=== PATIENT | female | born 1960 | race Caucasian/White ===

== ENCOUNTER → 2017-12-13 | Outpatient (CLI) | payer OTHER ==
--- NOTE | 2017-12-13 18:23 | Diagnostic Imaging Report ---
PROCEDURE: Frontal and lateral views of the chest. COMPARISON: Patients [facility], , CHEST SINGLE (NOT PORTABLE), 11/17/2014, 18:23. INDICATIONS: BRONCHITIS FINDINGS: Lines/tubes: None. Lungs: The lungs are well inflated and clear. There is no evidence of pneumonia or pulmonary edema. Pleura: There is no pleural effusion or pneumothorax. Heart and mediastinum: The heart and the mediastinum are normal. Bones: No acute bony abnormality. IMPRESSION: 1. No acute cardiopulmonary abnormalities. Vahid Bae M.D. Dictated by: Vahid Bae M.D. on 12/13/2017 at 18:23 Electronically approved by: Vahid Bae M.D. on 12/13/2017 at 18:23
== END ==
LOC: RAD 17:36
PROVIDERS: ATTEND Family Medicine
DX: J40 Bronchitis, not specified as acute or chronic (principal)
CPT/HCPCS: 71046

== ENCOUNTER → 2019-02-03 | Outpatient (CLI) | payer OTHER ==
--- NOTE | 2019-02-03 16:21 | Diagnostic Imaging Report ---
Exam: Lumbar spine complete History: Low back pain radiating down both legs Comparison: None. Findings: There are 5 nonrib-bearing lumbar-type vertebral bodies. No acute, displaced fracture or subluxation. No pars interarticularis defects are identified on the oblique radiographs. Mild dextroscoliotic curvature of the lumbar spine with disc space narrowing and marginal osteophytosis at L4-L5 and, to a lesser extent, L2-3 and L3-L4. Facet joints are well-maintained. Sacroiliac joints are intact. Impression: Mild degenerative disc changes at L2-3, L3-4 and L4-5 with associated mild dextroscoliotic curvature of the lumbar spine. Signed by: Dr. Marino Agrawal M.D. on 02/03/2019 4:17 PM
== END ==
LOC: RAD 15:35
PROVIDERS: ATTEND Family Medicine
DX: M54.5 Low back pain (principal)
CPT/HCPCS: 72110

== ENCOUNTER → 2019-07-11 | Day surgery (SDC) | payer OTHER ==
[~2019-07-11] MED LIST: CYMBALTA30 MG PO; FENTANYL CITRATE/PF 100MCG/2 ML INJ ONE; GLUCAGON FOR INJ 1 MG VIAL ONE; HYOSCYAMINE 0.125 MG TAB ONE; LORAZEPAM0.5 MG PO; MELATONIN10 MG PO; MIDAZOLAM HCL 2 MG/2 ML VIAL ONE; PROPOFOL IV EMULSION 10 MG/ML 50 ML VIAL ONE; SLEEP AID25 M1 PO
--- OUTSIDE RECORDS SUMMARY | 2019-07-11 10:51 | XMS REPORT ---
Author Author [facility] Address Unknown Phone Unavailable Care Team Providers Care Tipple Boss Name Role Phone DAISY CONTRERAS Unavailable Unavailable Problems This patient has no known problems. Allergies, Adverse Reactions, Alerts This patient has no known allergies or adverse reactions. Medications This patient has no known medications. Results Test Description Test Time Test Comments Text Results Atomic Results Result Comments BREAST ULTRASOUND BILATERAL 2019-07-01 10:21:36 - BREAST ULTRASOUND BILATERALULTRASOUND OF BOTH BREASTS AND BOTH AXILLA: 07/01/2019CLINICAL: Abnormal Mammogram. Comparison is made to exams dated 03/21/2019 mammogram - [facility]- , 07/10/2014 mammogram, 07/10/2014 ultrasound, and 12/26/2013 mammogram - [facility]. Color flow and real-time ultrasound of the right breast and axilla and color flow and real-time ultrasound of the left breast and axilla were performed. Augustine scale images of the real-time examination were reviewed. There is a benign 8 mm simple cyst in the right breast at 6 o'clock, 3 cm from the nipple. No suspicious acoustic findings noted on the whole breast bilateral ultrasound.No abnormalities were seen sonographically in the left breast or either axilla. IMPRESSION: BENIGN No sonographic evidence of malignancy. Benign simple cyst in the right breast. Resume annual screening mammography in one year. The above findings and recommendations were discussed with the patient at the time of the examination.Jonnathan Palacios MD hs/:07/01/2019 10:21:36 copy to: Daisy Contreras M.D., ph: [phone], fax: [phone] Technologist: Daja Dominguez , [facility]-FWletter sent: BIRADS 1-2 Normal Ultrasound BI-RADS: 2 Benign SCR MAMM BILATERAL NICOL CAD DIGITAL W/AUGMENTATION 2019-04-15 10:54:00 - SCR MAMM BILATERAL NICOL CAD DIGITAL W/AUGMENTATIONBILATERAL DIGITAL SCREENING MAMMOGRAM 3D/2D WITH CAD WITH AUGMENTATION: 03/21/2019CLINICAL: Asymptomatic. Digital breast tomosynthesis was performed in addition to routine CC and MLO views. Current mammographic images were evaluated by either a [employer] M-Vu or a [employer] ImageChecker CAD (computer aided detection system). Comparison is made to exams dated 07/10/2014 mammogram, 12/26/2013 mammogram, 08/13/2012 mammogram, and 03/28/2012 mammogram - [facility]. The tissue of both breasts is heterogeneously dense. This may lower the sensitivity of mammography. There are multiple bilateral oval and round masses. Bilateral retropectoral silicone implants are present. There is irregularity along the superior medial margin of the right implant.IMPRESSION: INCOMPLETE ASSESSMENT: ADDITIONAL IMAGING EVALUATION RECOMMENDED1. Bilateral oval and round masses are indeterminant. Bilateral breast ultrasound is recommended.2. Irregularity along the superior medial margin of the right implant, which is likely due to benign implant rupture.Sherlyn Hairston D.O. al/:04/15/2019 10:54:00 Entry: cp - 04/15/2019 10:55:22Imaging Technologist: Lupe ESCALONA, [facility]- FWletter sent: Additional Imaging Mammogram BI-RADS: 0 Indeterminate SP LUMBAR, COMPLETE MIN 4VW 2019-02-03 16:15:00 [place] [address] Patient Name: MARIAELENA MEJIA MR #: [id number] : 1960 Age/Sex: 58/F Req #: [id number] Adm Physician: Ordered by: DAISY CONTRERAS MD Report #: [id number] Location: [facility] Room/Bed: Procedure: [id number] DX/SP LUMBAR, COMPLETE MIN 4VW Exam Date: 02/03/19 Exam Time: 1555 REPORT STATUS: Signed Exam: Lumbar spine complete History: Low back pain radiating down both legs Comparison: None. Findings: There are 5 nonrib-bearing lumbar-type vertebral bodies. No acute, displaced fracture or subluxation. No pars interarticularis defects are identified on the oblique radiographs. Mild dextroscoliotic curvature of the lumbar spine with disc space narrowing and marginal osteophytosis at L4-L5 and, to a lesser extent, L2-3 and L3-L4. Facet joints are well-maintained. Sacroiliac joints are intact. Impression: Mild degenerative disc changes at L2-3, L3-4 and L4-5 with associated mild dextroscoliotic curvature of the lumbar spine. Signed by: Dr. Yohana Maldonado M.D. on 02/03/2019 4:17 PM Dictated By: YOHANA MALDONADO MD 16 Transcribed By: YUNIEL on 02/03/191616 COPY TO: DAISY CONTRERAS MD CHEST 2 VIEWS [place] [address] Patient Name: MARIAELENA MEJIA MR #: [id number] : 1960 Age/Sex: 57/F Req #: [id number] Adm Physician: Ordered by: DAISY CONTRERAS MD Report #: [id number] Location: [facility] Room/Bed: Procedure: [id number] DX/CHEST 2 VIEWS Exam Date: 12/13/17 Exam Time: 1801 REPORT STATUS: Signed PROCEDURE: Frontal and lateral views of the chest. COMPARISON: Patients [facility], , CHEST SINGLE (NOT PORTABLE), 11/17/2014, 18:23. INDICATIONS: BRONCHITIS FINDINGS: Lines/tubes: None. Lungs: The lungs are well inflated and clear. There is no evidence of pneumonia or pulmonary edema. Pleura: There is no pleural effusion or pneumothorax. Heart and mediastinum: The heart and the mediastinum are normal. Bones: No acute bony abnormality. IMPRESSION: 1. No acute cardiopulmonary abnormalities. Edouard Bae M.D. Dictated by: Edouard Bae M.D. on 12/13/2017 at 18:23 Electronically approved by: Edouard Bae M.D. on 12/13/2017 at 18:23 Dictated By: EDOUARD BAE MD 22 Transcribed By: MACHO on 12/13/171822 COPY TO: DAISY CONTRERAS MD
[2019-07-11 14:50] VITALS: BP 117/69
--- NOTE | 2019-07-11 21:03 | Operative Report ---
DATE OF PROCEDURE: 07/11/2019 SURGEON: Earl Johnson MD PROCEDURE: Colonoscopy with polypectomy. INDICATIONS FOR COLONOSCOPY: Surveillance colonoscopy, personal history of colon polyps. MEDICATIONS: The patient was done under MAC, please see anesthesiologist's note. PROCEDURE IN DETAIL: With the patient in left lateral decubitus position, a flexible fiberoptic Olympus colonoscope was inserted into the rectum with ease and advanced all the way to the cecum. A minute polyp was noted in the cecum that was removed per the cold biopsy forceps. The ascending colon appeared to be within normal limits. One polyp was removed for cold snare polypectomy from the transverse colon. The descending colon appeared to be within normal limits. Two polyps were snared and three polyps were hot biopsied from the sigmoid colon. One polyp was snared and one polyp was hot biopsied from the rectum. The scope was then retroflexed into the distal rectum and small internal hemorrhoids were noted, none of which was actively bleeding. The scope was then straightened out, it was subsequently withdrawn. The patient tolerated the procedure well. IMPRESSION: 1. Cecal polyp removed per cold biopsy forceps. 2. Transverse colon polyp removed per cold snare polypectomy. 3. Sigmoid colon polyps x5, two snared and three hot biopsied. 4. Rectal polyps x2, one removed per snare electrocautery and one per hot biopsy forceps. 5. Internal hemorrhoids, none actively bleeding. PLAN: Follow up histology. Initiate high-fiber, low-fat diet. Initiate high-fiber supplement. The patient might benefit from a followup colonoscopy in 3 years. A total of nine polyps were removed. Earl Johnson MD [facility] /[id number] cc: Jc Contreras MD
== END | disposition home or self-care (01) ==
LOC: OR 10:49
PROVIDERS: ATTEND Internal Medicine Gastroenterology
DX: Z09 Encounter for follow-up examination after completed treatment for conditions other than malignant neoplasm (principal); D12.5 Benign neoplasm of sigmoid colon; D12.3 Benign neoplasm of transverse colon; D12.0 Benign neoplasm of cecum; K62.1 Rectal polyp; K64.8 Other hemorrhoids; I10 Essential (primary) hypertension; Z01.810 Encounter for preprocedural cardiovascular examination; Z68.30 Body mass index [BMI] 30.0-30.9, adult
CPT/HCPCS: 45380; 45384; 45385; 93005; J1610; J2250; J2704; J3010; 45378

== ENCOUNTER 2019-12-22 11:47 | Emergency (ER) | payer OTHER ==
[~2019-12-22] VITALS: Ht 162.6 cm; Wt 78.0 kg
[~2019-12-22 11:47] MED LIST changes: -FENTANYL CITRATE/PF 100MCG/2 ML INJ ONE; -GLUCAGON FOR INJ 1 MG VIAL ONE; -HYOSCYAMINE 0.125 MG TAB ONE; -MIDAZOLAM HCL 2 MG/2 ML VIAL ONE; -PROPOFOL IV EMULSION 10 MG/ML 50 ML VIAL ONE
--- NOTE | 2019-12-22 13:59 | Diagnostic Imaging Report ---
TECHNIQUE: CT of the chest WITHOUT intravenous contrast. Dose modulation, iterative reconstruction, and/or weight-based adjustment of the mA/kV was utilized to reduce the radiation dose to as low as reasonably achievable. INDICATION: 59-year-old woman after fall. COMPARISON: None. FINDINGS: ABSENCE OF INTRAVENOUS CONTRAST DECREASES SENSITIVITY FOR DETECTION OF FOCAL LESIONS AND VASCULAR PATHOLOGY. LINES/TUBES: None. LUNGS AND AIRWAYS: Central airways are patent. Mild centrilobular emphysema. 4 mm noncalcified nodule in the posterior right upper lobe adjacent to the major fissure (axial lung window series image 37). 4 mm noncalcified nodule in the left upper lobe (axial lung window series image 44). 3 mm noncalcified nodule in the lingula (axial lung window series image 69). Linear atelectasis in both lower lobes, right greater than left. PLEURA: Trace right pleural effusion. HEART AND MEDIASTINUM: The visualized thyroid gland is normal. No significant mediastinal, hilar, or axillary lymphadenopathy. The heart and pericardium are within normal limits. Mild atherosclerotic calcifications in the thoracic aorta. SOFT TISSUES AND BONES: Degenerative changes of the visualized spine. Suspected chronic posttraumatic deformities of anterior right ribs. Bilateral breast prostheses. UPPER ABDOMEN: Apparent 1.9 x 1.6 cm mildly hypodense lesion in the anteromedial upper pole of the right kidney. IMPRESSION: Trace right pleural effusion. Atelectasis in both lower lobes. 3-4 mm pulmonary nodules. Optional follow-up chest CT may be obtained in 12 months for reassessment. Apparent mildly hypodense lesion in the right kidney, incompletely characterized on this exam. Renal ultrasound or abdomen CT or MRI with and without intravenous contrast (renal mass protocol) may be obtained for further characterization. Signed by: Yamilet Vickers MD on 12/22/2019 1:57 PM
== END 2019-12-22 14:30 | disposition home or self-care (01) ==
LOC: FSED 11:47
DX: S20.211A Contusion of right front wall of thorax, initial encounter (principal); M62.830 Muscle spasm of back; W01.0XXA Fall on same level from slipping, tripping and stumbling without subsequent striking against object, initial encounter; Y93.01 Activity, walking, marching and hiking; Y92.488 Other paved roadways as the place of occurrence of the external cause; J44.9 Chronic obstructive pulmonary disease, unspecified; F41.9 Anxiety disorder, unspecified; N28.9 Disorder of kidney and ureter, unspecified; J90 Pleural effusion, not elsewhere classified; R91.8 Other nonspecific abnormal finding of lung field
CPT/HCPCS: 71250; 99283

== ENCOUNTER 2020-04-19 00:27 | Observation (INO) | payer OTHER ==
[~2020-04-19] VITALS: Ht 162.6 cm; Wt 86.2 kg
[2020-04-19] VITALS (10 sets, daily range): BP systolic 128–181; BP diastolic 46–96
[2020-04-19] MEDS ORDERED: SODIUM CHLORIDE 0.9% 1000ML 1,000 ML IV STA ×2 (00:36)
[2020-04-19] MEDS ORDERED: KETOROLAC TROMETHAMINE 30 MG/ML VIAL IV STA (00:36)
--- NOTE | 2020-04-19 00:38 | Emergency Department Note ---
History of Present Illnes History of Present Illness Chief Complaint: General Medicine Complaints History of Present Illness This is a 60 year old female LLQ pain with n/v x 3 days. recent diagnosis of kidney stone at [facility] 2 days prior. Historian: Patient, Blow Molding Machine Operator/EMS Arrival Mode: [facility] EMS Treatment AUTOMOTIVE WINDOW TINTER: See EMS Report Onset (how long ago): day(s) (3) Severity: moderate Onset quality: gradual Duration (how long): day(s) (3) Timing of current episode: constant Progression: worsening Chronicity: new Context: Denies recent illness, Denies recent surgery, Denies recent immobilization, Denies recent travel, Denies trauma/injury, Denies new medications, Denies hx of DVT/PE, Denies non-compliance w/ medications, Denies other Relieving factors: rest Exacerbating factors: movement Associated symptoms: Reports malaise, Reports nausea/vomiting Previous service: re-evaluation Past Medical/Family History Physician Review I have reviewed the patient's past medical and family history. Any updates have been documented here. Past Medical History Recent Fever: No Clinical Suspicion of Infectio: No New/Unexplained Change in Ment: No Past Medical History: COPD, Anxiety Other Medical History: CHRONIC BRONCHITIS Past Surgical History: Hysterectomy Other Surgery: breast implants Social History Smoking Cessation: Never Smoker Alcohol Use: None Any Illegal Drug Use: No Other Last Tetanus: utd Review of Systems Review of Systems Constitutional: Reports no symptoms EENTM: Reports no symptoms Cardiovascular: Reports no symptoms Respiratory: Reports no symptoms Gastrointestinal: Reports nausea, Reports vomiting Genitourinary: Reports pain Musculoskeletal: Reports no symptoms Integumentary: Reports no symptoms Neurological: Reports no symptoms Psychological: Reports no symptoms Endocrine: Reports no symptoms Hematological/Lymphatic: Reports no symptoms Physical Exam Related Data Allergies: Coded Allergies: ceftriaxone (Verified Allergy, Intermediate, itching, 04/20/20) levofloxacin (Verified Allergy, Unknown, 04/19/20) Vital signs reviewed: Yes Physical Exam CONSTITUTIONAL Constitutional: Present well-developed, Present well-nourished HENT HENT: Present normocephalic, Present atraumatic, Present oropharynx clear/moist, Present nose normal HENT L/R: Present left ext ear normal, Present right ext ear normal EYES Eyes: Reports PERRL, Reports conjunctivae normal NECK Neck: Present ROM normal PULMONARY Pulmonary: Present effort normal, Present breath sounds normal CARDIOVASCULAR Cardiovascular: Present regular rhythm, Present heart sounds normal, Present capillary refill normal, Present normal rate GASTROINTESTINAL Abdominal: Present soft, Present tender (LLQ), Present left CVA tenderness GENITOURINARY Genitourinary: Present exam deferred SKIN Skin: Present warm, Present dry MUSCULOSKELETAL Musculoskeletal: Present ROM normal NEUROLOGICAL Neurological: Present alert, Present oriented x 3, Present no gross motor or sensory deficits PSYCHOLOGICAL Psychological: Present mood/affect normal, Present judgement normal Results Laboratory Lab results reviewed: Yes Imaging Imaging results reviewed: Yes Impressions [facility] [address] [place] [address] Patient Name: OVIDIO MEJIA MR #: [id number] : 1960 Age/Sex: 60/F Req #: [id number] Adm Physician: Ordered by: SHUKRI VASQUEZ DO Report #: [id number] Location: ER Room/Bed: Procedure: [id number] CT/CT ABDOMEN/PELVIS WO Exam Date: 04/19/20 Exam Time: 0120 REPORT STATUS: Signed EXAM: CT Abdomen and Pelvis WITHOUT contrast INDICATION: Abdominal pain COMPARISON: None. TECHNIQUE: Abdomen and pelvis were scanned utilizing a multidetector helical scanner from the lung base to the pubic symphysis without administration of IV contrast. Absence of intravenous contrast decreases sensitivity for detection of focal lesions and vascular pathology. Coronal and sagittal reformations were obtained. Routine protocol was performed. IV CONTRAST: None ORAL CONTRAST: None COMPLICATIONS: None RADIATION DOSE: Total DLP: ... mGy*cm Estimated effective dose: (DLP x 0.015 x size factor) mSv CTDIvol has been reviewed. It is below the limits set by the Radiation Protocol Committee (RPC). Dose modulation, iterative reconstruction, and/or weight based adjustment of the mA/kV was utilized to reduce the radiation dose to as low as reasonably achievable. FINDINGS: LINES and TUBES: None. LOWER THORAX: Mild scarring and/or atelectasis of the lung bases. Breast implants. HEPATOBILIARY: No focal hepatic lesions. No biliary ductal dilation. GALLBLADDER: No radio-opaque stones or sludge. No wall thickening. SPLEEN: No splenomegaly. PANCREAS: No focal masses or ductal dilatation. ADRENALS: No adrenal nodules KIDNEYS/URETERS: Mild left hydroureteronephrosis. Moderate left perinephric inflammation. 6 mm stone within the left proximal ureter above the level of the pelvic free. Tiny nonobstructing right intrarenal calculus. No right hydronephrosis. No discrete solid or cystic renal mass. GI TRACT: No abnormal distention, wall thickening, or evidence of bowel obstruction. Appendix is normal. PELVIC ORGANS/BLADDER: The uterus is surgically absent. The bladder is grossly unremarkable. LYMPH NODES: No lymphadenopathy. VESSELS: Mild atherosclerotic calcifications. PERITONEUM / RETROPERITONEUM: No free air or fluid. BONES: No acute abnormalities. SOFT TISSUES: Unremarkable. IMPRESSION: 1. Left obstructive uropathy due to a 6 mm stone within the left proximal ureter. Mild left hydronephrosis. 2. Tiny nonobstructing right intrarenal calculus. Signed by: Dillon Winters MD on 04/19/2020 2:08 AM Dictated By: DILLON WINTERS MD 7 Transcribed By: YUNIEL on 04/19/20207 COPY TO: SHUKRI VASQUEZ DO~ Assessment & Plan Medical Decision Making MDM 60 yof with abdominal pain. CBC, CMP, UA and CTS ordered to r/o appendicitis, diverticulitis, UTI, kidney stone, perforated viscus, obstruction, ischemia, and biliary pathology Assessment & Plan Final Impression: (1) Kidney stone on left side (2) UTI (urinary tract infection) (3) Renal insufficiency Depart Disposition: ADMITTED Last Vital Signs Date Time Temp Pulse Resp B/P (MAP) Pulse Ox O2 Delivery O2 Flow Rate FiO2 04/20/20 09:58 98.2 104 16 97 Room Air 04/20/20 08:20 107/79 (88) 04/19/20 13:52 6 Home Meds Reported Medications Nitrofurantoin Monohyd/M-Cryst (MACROBID 100 MG CAPSULE) 100 Mg Capsule, 100 MG PO BIDWM, CAP 04/20/20 Oxybutynin Chloride (DITROPAN XL) 5 Mg Tab.er.24, 5 MG PO BID, #30 TAB 04/20/20 Acetaminophen With Codeine (TYLENOL WITH CODEINE #3 TABLET) 1 Each Tablet, 300 MG PO Q4HR PRN for Mild Pain (1-3) or Fever>100.8, TAB 04/20/20 Melatonin (MELATONIN) 10 Mg Tab.mphase, 10 MG PO HS 07/09/19 Doxylamine Succinate (SLEEP AID) 25 Mg Tablet, PO DAILY 07/09/19 Duloxetine Hcl (CYMBALTA) 30 Mg Capsule.dr, 30 MG PO DAILY, #30 CAP 07/09/19 Lorazepam (LORAZEPAM) 0.5 Mg Tablet, 0.5 MG PO HS, TAB 07/09/19 SHUKRI VASQUEZ DO Apr 19, 2020 00:38
[2020-04-19 01:34] LABS: BASOPHILS # (AUTO) 0.1 (0.0-0.1); BASOPHILS % 0.5 % (0.0-1.0); EOSINOPHILS % 0.1 % (0.0-6.0); HEMATOCRIT 43.8 % (34.2-44.1); HEMOGLOBIN 14.6 g/dL (12.0-16.0); LYMPHOCYTES # (AUTO) 1.4 (1.0-3.2); LYMPHOCYTES % 7.8 % (18.0-39.1); MEAN CORPUSCULAR HEMOGLOBIN 29.4 pg (28-32); MEAN CORPUSCULAR HGB CONC 33.3 g/dL (31-35); MEAN CORPUSCULAR VOLUME 88.1 fL (81-99); MONOCYTES # (AUTO) 1.1 (0.2-0.8); NEUTROPHILS # (AUTO) 14.8 (2.1-6.9); NEUTROPHILS % 85.1 % (38.7-80.0); PLATELET COUNT 368 x10e3/uL (140-360); RED BLOOD COUNT 4.97 x10e6/uL (3.6-5.1); RED CELL DISTRIBUTION WIDTH 13.2 % (11.7-14.4)
[2020-04-19] MEDS ORDERED: ONDANSETRON HCL INJ 2MG/ML 2ML 2 MG/ML VIAL IV STA (01:50)
[2020-04-19] MEDS ORDERED: CIPROFLOXACIN 400 MG/D5W 200ML 200 ML IV STA (01:51)
[2020-04-19] MEDS ORDERED: MORPHINE SULFATE INJ 4 MG/ML INJ 1ML IV PRN (02:00)
[2020-04-19] MEDS ORDERED: ONDANSETRON HCL INJ 2MG/ML 2ML 2 MG/ML VIAL IV PRN ×2 (02:00→16:45)
--- NOTE | 2020-04-19 02:11 | Diagnostic Imaging Report ---
EXAM: CT Abdomen and Pelvis WITHOUT contrast INDICATION: Abdominal pain COMPARISON: None. TECHNIQUE: Abdomen and pelvis were scanned utilizing a multidetector helical scanner from the lung base to the pubic symphysis without administration of IV contrast. Absence of intravenous contrast decreases sensitivity for detection of focal lesions and vascular pathology. Coronal and sagittal reformations were obtained. Routine protocol was performed. IV CONTRAST: None ORAL CONTRAST: None COMPLICATIONS: None RADIATION DOSE: Total DLP: ... mGy*cm Estimated effective dose: (DLP x 0.015 x size factor) mSv CTDIvol has been reviewed. It is below the limits set by the Radiation Protocol Committee (RPC). Dose modulation, iterative reconstruction, and/or weight based adjustment of the mA/kV was utilized to reduce the radiation dose to as low as reasonably achievable. FINDINGS: LINES and TUBES: None. LOWER THORAX: Mild scarring and/or atelectasis of the lung bases. Breast implants. HEPATOBILIARY: No focal hepatic lesions. No biliary ductal dilation. GALLBLADDER: No radio-opaque stones or sludge. No wall thickening. SPLEEN: No splenomegaly. PANCREAS: No focal masses or ductal dilatation. ADRENALS: No adrenal nodules KIDNEYS/URETERS: Mild left hydroureteronephrosis. Moderate left perinephric inflammation. 6 mm stone within the left proximal ureter above the level of the pelvic free. Tiny nonobstructing right intrarenal calculus. No right hydronephrosis. No discrete solid or cystic renal mass. GI TRACT: No abnormal distention, wall thickening, or evidence of bowel obstruction. Appendix is normal. PELVIC ORGANS/BLADDER: The uterus is surgically absent. The bladder is grossly unremarkable. LYMPH NODES: No lymphadenopathy. VESSELS: Mild atherosclerotic calcifications. PERITONEUM / RETROPERITONEUM: No free air or fluid. BONES: No acute abnormalities. SOFT TISSUES: Unremarkable. IMPRESSION: 1. Left obstructive uropathy due to a 6 mm stone within the left proximal ureter. Mild left hydronephrosis. 2. Tiny nonobstructing right intrarenal calculus. Signed by: Ron Fisher MD on 04/19/2020 2:08 AM
[2020-04-19] MEDS ORDERED: ONDANSETRON HCL 4 MG ORAL DISINTEGRATING TAB PO ONE (02:30)
[2020-04-19] MEDS: CEFTRIAXONE SOD 1 GM/NS 50 ML 50 ML IV SCH (02:45)
[2020-04-19 03:47] LABS: ALBUMIN 3.6 g/dL (3.5-5.0); CALCIUM 8.9 mg/dL (8.4-10.2); CREATININE, SERUM 1.29 mg/dL (0.57-1.11)
--- NOTE | 2020-04-19 05:30 | NUR ---
RECEIVED THE PATIENT FROM ER IN [facility] WITH C/O LEFT FLANK PAIN.ADMISSION ASSESSMENT DONE.AAOX3.NO RESP.DISTRESS .PAIN VOICED 02/21.IV TO LEFT WRIST #20 R WRIST #20.PATENT.ORIENTED TO THE UNIT.BED LOCKED AND IN LOWEST POSITION.CALL LIGHT WITHIN REACH.URINE TO BE COLLECTED.PT IS AWARE OF THAT.INSTRUCTED TO CALL FOR ASSISTANCE NEEDED.
[2020-04-19] MEDS: SODIUM CHLORIDE 0.9% 1000ML 1,000 ML IV SCH ×4 (06:06→21:07)
--- NOTE | 2020-04-19 06:17 | NUR ---
URINE SENT TO THE LAB.
[2020-04-19 06:55] LABS: CLARITY,URINE CLEAR (CLEAR); COLOR,URINE YELLOW (YELLOW)
[2020-04-19 06:56] LABS: BILIRUBIN,URINE NEGATIVE (NEGATIVE); KETONES,URINE 1+ (NEGATIVE); LEUKOCYTE ESTERASE ,URINE NEGATIVE (NEGATIVE); NITRITE,URINE NEGATIVE (NEGATIVE); PROTEIN,URINE DIPSTICK 1+ (NEGATIVE); URINE UROBILINOGEN 0.2 mg/dL (0.2 - 1)
--- NOTE | 2020-04-19 06:58 | NUR ---
BED SIDE SHIFT REPORT GIVEN TO ONCOMING RN.STABLE CONDITION.
[2020-04-19 07:14] LABS: BACTERIA,URINE MODERATE /HPF; EPITHELIAL CELLS,URINE MODERATE /LPF; RBC,URINE 0-5 /HPF (0-5); WBC,URINE (MAN) 0-5 /HPF (0-5)
[2020-04-19] MEDS ORDERED: PROMETHAZINE 12.5MG/ NACL 0.9% 12.5 MG/50 ML BAG IV PRN (08:15)
--- NOTE | 2020-04-19 09:00 | Consultation ---
DATE OF CONSULTATION: 04/19/2020 Urology Consultation REASON FOR CONSULTATION: Renal colic. HISTORY OF PRESENT ILLNESS: Ms. Mariaelena Martin is a 60-year-old woman with previous history of urolithiasis. She has had lithotripsy remotely in the past and was supposed to undergo another lithotripsy, but she passed that stone. The patient had severe left-sided flank pain, nausea and vomiting. She reported in the emergency room, was found to have obstructing left ureterolithiasis and nonobstructing right nephrolithiasis and urological consultation was sought following admission. The patient has been n.p.o. due to her nausea and vomiting and has failed to pass her stone. She denies hematuria and dysuria. She denies problems with urinary tract infection. She reports mild stress and urge type urinary incontinence that has not been problematic for her before. PAST MEDICAL AND SURGICAL HISTORY: 1. COPD. 2. Anxiety. 3. Chronic bronchitis. 4. Hysterectomy. 5. Status post breast implant. MEDICATIONS: Please refer to the MAR. ALLERGIES: LEVAQUIN. SOCIAL HISTORY: The patient denies smoking or ethanol drug use. FAMILY HISTORY: Noncontributory to the active urological problems. REVIEW OF SYSTEMS: Discussed as above in history of present illness, past medical history, otherwise negative for all systems. PHYSICAL EXAMINATION: GENERAL: Healthy-appearing 60-year-old woman, lying in bed, in no apparent distress. VITAL SIGNS: She is currently afebrile. Vital signs currently stable. ABDOMEN: Soft and nondistended. It is tender in the left flank with left-sided costovertebral angle tenderness. Kidneys not palpable without hepatosplenomegaly. The patient is obese. For the remaining physical examination systems, please refer to the admission history and physical and chart. LABORATORY STUDIES: CT scan of the abdomen and pelvis reveals a 6 mm proximal left ureteral stone with left-sided hydroureteronephrosis with perinephric inflammation and a tiny right nonobstructing kidney stone. White blood cell count is elevated at 17,400, hemoglobin 14.6, platelets 386,000. The patient's creatinine is elevated at 1.29, presumably this is an acute elevation. Urinalysis is significant for moderate epithelial cells and moderate bacteria in this uyp-[id number]-[id number] urinary specimen. ASSESSMENT: 1. Left renal colic. 2. History of prior urolithiasis. 3. Nausea and vomiting. 4. Left ureterolithiasis. 5. Right nephrolithiasis. 6. Left hydroureteronephrosis. 7. Mixed-type urinary incontinence. 8. Obesity. 9. Leukocytosis. 10. Acute renal failure. PLAN: 1. The patient desires additional antiemetics and I will prescribe her Phenergan. 2. I will post the patient for cystoscopy with retrograde pyelograms and placement of left indwelling ureteral stent. 3. The patient understands will have a temporary indwelling ureteral stent, requires followup and removal. 4. Defer the hematological and electrolyte abnormalities to the primary physician. 5. All cultures are pending. I recommend following up on this data. Thank you much for involving us in care of your patient. We will be happy to follow her along with you as well as an outpatient. Suraj Bui MD [place]/MODL /[id number] cc: Jc Contreras MD
--- NOTE | 2020-04-19 12:50 | NUR ---
Pt unavailable at this time. Order Fulfillment Specialist will follow up as able. CHR[facility] Spiritual [facility] Department O: [phone]
--- NOTE | 2020-04-19 12:55 | NUR ---
left to go to the or for stent placement. In good spirits. New ID band placed as patients ID band was missing at time of transfer.
[2020-04-19] MEDS ORDERED: B&O 60MG R/S 60 MG SUPP PR ONE (12:56)
[2020-04-19] MEDS ORDERED: IOPAMIDOL 300MG/ML 50ML INFUS..BTL IV ONE (12:56)
[2020-04-19] MEDS ORDERED: MIDAZOLAM HCL 2 MG/2 ML VIAL ONE (14:21)
[2020-04-19] MEDS ORDERED: PROPOFOL IV EMULSION 10 MG/ML 20 ML VIAL ONE (15:05)
[2020-04-19] MEDS ORDERED: SEVOFLURANE INHAL SOLN 250 ML PEN BTL ONE (15:05)
[2020-04-19] MEDS ORDERED: ONDANSETRON HCL INJ 2MG/ML 2ML 2 MG/ML VIAL ONE (15:05)
[2020-04-19] MEDS ORDERED: ETOMIDATE 40 MG/ 20ML VIAL IV ONE (15:05)
[2020-04-19] MEDS ORDERED: LIDOCAINE HCL 2% LOCAL INJ 5 ML SDV VIAL INJ ONE (15:05)
[2020-04-19] MEDS ORDERED: PHENAZOPYRIDINE HCL 100 MG TAB PO PRN (16:30)
[2020-04-19] MEDS ORDERED: B&O 60MG R/S 60 MG SUPP PR PRN (16:30)
--- NOTE | 2020-04-19 16:44 | NUR ---
H&P cc: flank pain HPI: 60yoF, PCP ??, developed flank pain on left, found to have ureterolithiasis, stent placed, now improving; Did have N/V for days and flank pain. PMH: COPD, anxiety d/o PSHx; hysterectomy, brast implant Allergies; see emr FH/SH;no illicits meds; see MAR ROS: no cp/sob/skin rash/confusion/diarrhea/vision changes/focal limb weakness v/s revd PE tired appearing anicteric ns1s2 mod bs soft nd; left flank tender no e/t skin dry n. affect a&ox3; escobar labs/meds revd A/P: Left ureterolithiasis- hydration; urology consult UTI Left pyelonephritis- iv abx Mixed urinary incontinence Obesity- screen for DM BMI 32.6- as above Left hydronephrosis BRIAN- ivf Prop: scd DIspo: Rahul Rosa MD, PHD
[2020-04-19] MEDS ORDERED: ZOLPIDEM TARTRATE 5 MG TAB PO PRN (16:45)
[2020-04-19] MEDS ORDERED: DOCUSATE SODIUM 100 MG CAP PO PRN (16:45)
[2020-04-19] MEDS ORDERED: ACETAMINOPHEN 325 MG TAB PO PRN (16:45)
--- NOTE | 2020-04-19 20:31 | NUR ---
BEDSIDE SHIFT REPORT GIVEN TO ONCOMING NURSE. PATIENT IS RESTING IN BED, NO ACUTE DISTRESS NOTED. CALL LIGHT WITHIN REACH. BED IN THE LOWEST POSITION.
[2020-04-19] MEDS ORDERED: LORAZEPAM 0.5 MG TAB PO SCH (21:00)
[2020-04-19] MEDS ORDERED: MELATONIN 5 MG TABLET PO SCH (21:00)
[2020-04-19] MEDS: OXYBUTYNIN CHLORIDE 5 MG TAB PO SCH (21:07)
[2020-04-20] VITALS: BP 125/81
[2020-04-20] MEDS: CEFTRIAXONE SOD 1 GM/NS 50 ML 50 ML IV SCH (03:00)
--- NOTE | 2020-04-20 03:55 | NUR ---
Patient Reported itching after rocephin IV was administered as ordered by fadi Segundo. The order had been put in by him so called him and notified him and requested order for Benadryl for the adverse reaction. Attending MD also notified. Dr. Rosa. Patient is stable, just reporting itching. Added to the list of allergens for the patient. At this time Normal Saline is infusing and will continue to do so. IV benadryl 25mg is going to be given for the adverse reaction.Rocephin discontinued from the patients emar. At this time patient has no antibiotic ordered. Will continue to monitor the patient. VS WNL.
[2020-04-20 04:00] VITALS: BP 129/87
[2020-04-20] MEDS ORDERED: DIPHENHYDRAMINE HCL INJ 50 MG/ML VIAL IV ONE (04:00)
--- NOTE | 2020-04-20 04:21 | NUR ---
New orders for Aztreonam 500mg IV Q8h from Dr. Rosa entered.
[2020-04-20 05:32] LABS: BASOPHILS # (AUTO) 0.1 (0.0-0.1); BASOPHILS % 0.7 % (0.0-1.0); EOSINOPHILS # (AUTO) 0.1 (0.0-0.4); EOSINOPHILS % 0.6 % (0.0-6.0); HEMATOCRIT 41.1 % (34.2-44.1); LYMPHOCYTES # (AUTO) 2.6 (1.0-3.2); MEAN CORPUSCULAR HEMOGLOBIN 29.4 pg (28-32); MEAN CORPUSCULAR HGB CONC 31.6 g/dL (31-35); MONOCYTES # (AUTO) 1.1 (0.2-0.8); MONOCYTES % 9.3 % (4.4-11.3); NEUTROPHILS # (AUTO) 7.5 (2.1-6.9); PLATELET COUNT 332 x10e3/uL (140-360); RED BLOOD COUNT 4.42 x10e6/uL (3.6-5.1); RED CELL DISTRIBUTION WIDTH 12.9 % (11.7-14.4)
[2020-04-20 05:46] LABS: ALANINE AMINOTRANSFERASE 18 IU/L (0-55); ALBUMIN 3.1 g/dL (3.5-5.0); ALBUMIN/GLOBULIN RATIO 0.9 (0.8-2.0); ALKALINE PHOSPHATASE 130 IU/L (40-150); BLOOD UREA NITROGEN 11 mg/dL (7-26); BUN/CREATININE RATIO 12 (6-25); CALCIUM 8.1 mg/dL (8.4-10.2); CARBON DIOXIDE 20 mmol/L (22-29); CHLORIDE 109 mmol/L (98-107); EST GLOMERULAR FILTRATION RATE > 60 ML/MIN (60-); GLUCOSE 97 mg/dL (74-118); SODIUM 141 mmol/L (136-145)
--- NOTE | 2020-04-20 06:58 | NUR ---
RECEIVED BEDSIDE SHIFT REPORT FROM OFF GOING NURSE. PATIENT IS RESTING IN BED, NO ACUTE DISTRESS NOTED AT THIS TIME. CALL LIGHT WITHIN REACH. BED IN THE LOWEST POSITION.
[2020-04-20] MEDS ORDERED: AZTREONAM 0.5 GM in WATER STERILE 10ML VIAL 10 ML IV SCH (08:00)
[2020-04-20] MEDS ORDERED: AZTREONAM (AZACTAM) 0.5 GM in SODIUM CHLORIDE 0.9% 50ML 50 ML IV SCH (08:00)
[2020-04-20] MEDS: OXYBUTYNIN CHLORIDE 5 MG TAB PO SCH (08:05)
[2020-04-20 08:20] VITALS: BP 107/79
[2020-04-20] MEDS ORDERED: DULOXETINE HCL 30 MG DELAYED RELEASE PO SCH (09:00)
--- NOTE | 2020-04-20 09:33 | NUR ---
D/C summary Principal dx: Left ureterolithiasis- hydration; urology consult s/p stent UTI Left pyelonephritis- iv abx Secondary dx: Mixed urinary incontinence Obesity- screen for DM BMI 32.6- as above Left hydronephrosis BRIAN- ivf Prop: scd DIspo: d/c home with macrobid for 7 days; stable f/u pcp 1 week and nephrology 1 week d/c>35misn Rahul Rosa MD, PHD
[2020-04-20 09:58] VITALS: BP 107/79
[2020-04-20] MEDS ORDERED: DITROPAN XL5 MG PO (10:34)
[2020-04-20] MEDS ORDERED: TYLENOL WITH C1 EACH PO (10:34)
[2020-04-20] MEDS ORDERED: MACROBID 100 M100 MG PO (10:35)
[2020-04-20] MEDS ORDERED: ONDANSETRON HCL 4 MG ORAL DISINTEGRATING TAB PO PRN (11:00)
--- NOTE | 2020-04-20 11:00 | NUR ---
PER DR. KATELYNN LANG, CALL PRESCRIPTION FOR PHENERGAN 12.5MG PO Q4H PRN FOR NAUSEA #20. CALLED IN PRESCRIPTION TO PATIENT'S [facility]ARM[facility] P# [phone].
--- NOTE | 2020-04-20 11:04 | NUR ---
SPOKE TO TONY (PHARMACIST) AT [facility] FOR PRESCRIPTION.
--- NOTE | 2020-06-14 22:49 | Operative Report ---
DATE OF PROCEDURE: 04/19/2020 SURGEON: Suraj Bui MD PREOPERATIVE DIAGNOSES: 1. Right hydronephrosis due to stone. 2. Acute renal failure. 3. Mixed type urinary incontinence. POSTOPERATIVE DIAGNOSES: 1. Right hydronephrosis due to stone. 2. Acute renal failure. 3. Mixed type urinary incontinence. 4. Grade 3 cystocele. 5. Urethral hypermobility. 6. Atrophic (senile) vaginitis. OPERATIONS PERFORMED: 1. Cystourethroscopy with bilateral ureteral catheterization and retrograde ureteropyelography (separate procedure performed for the acute renal failure). 2. Interpretation of retrograde ureteropyelography, no radiologist present. 3. Supervision of fluoroscopy, no radiologist present. 4. Cystourethroscopy with insertion of left indwelling ureteral stent (separate procedure performed to relieve the hydronephrosis). 5. Pelvic examination under anesthesia. ANESTHESIA: General. COMPLICATIONS: None. CLINICAL SUMMARY: Please refer to consultation dictation from same date. OPERATIVE PROCEDURE IN DETAIL: Informed consent was verified. Mariaelena Martin was properly identified, taken to the operating room, placed on the cystoscopy table in supine position. Anesthesia was uneventfully begun. The patient was carefully gently repositioned in dorsal lithotomy position. All pressure points were padded. Her genitalia were prepared and draped in a usual sterile fashion. The cystoscope sheath with obturator in place was atraumatically inserted into the patient's urethra and bladder was drained. Panendoscopy revealed no suspicious mucosal lesion, no tumors, no stones. A ureteral catheter was used to cannulate each ureter and retrograde pyelograms were performed. With cystoscopic and fluoroscopic guidance, a left-sided indwelling ureteral stent was the placed, it was coiled into the patient's kidney as well as the patient's bladder. The retaining suture was cut short. The patient's bladder was drained. Cystoscope was withdrawn. Pelvic examination under anesthesia revealed a grade 3 cystocele with urethral hypermobility and atrophic (senile) vaginitis. The patient was then uneventfully reversed from anesthesia and taken to the recovery room in stable condition. There were no complications of the procedure. The patient tolerated the procedure well. We will plan the patient discharging in the next few days and of course we will follow the patient for left ureteroscopy with laser of stone. Interpretation of retrograde ureteropyelography contrast was instilled in retrograde fashion bilaterally. The right side was unremarkable. No hydronephrosis. No evidence of obstruction. The left side exhibited a large mid ureteral stone with proximal hydronephrosis. The stent was in good position, coiled into the patient's kidney as well as the patient's bladder. Suraj MD CHRISTOPHER Bui/JEMAL /[id number]
== END 2020-04-20 11:51 | disposition home or self-care (01) ==
LOC: ER 00:37 → INTOOBSV 03:24 → ERHOLD 03:24 → MED/SURG 05:18
PROVIDERS: ADMIT Internal Medicine; ATTEND Internal Medicine
DX: N13.6 Pyonephrosis (principal); J44.9 Chronic obstructive pulmonary disease, unspecified; F41.9 Anxiety disorder, unspecified; Z90.710 Acquired absence of both cervix and uterus; Z98.82 Breast implant status; E66.9 Obesity, unspecified; Z68.32 Body mass index [BMI] 32.0-32.9, adult; N17.9 Acute kidney failure, unspecified; N81.10 Cystocele, unspecified; Z11.59 Encounter for screening for other viral diseases; N39.46 Mixed incontinence; N20.1 Calculus of ureter
CPT/HCPCS: 36415 ×2; 52005; 52332; 74176; 74420; 80053 ×2; 81001; 83690; 83970; 84550; 85025 ×2; 87086; 87186; 99284; C1758; C1769; C2617; G0378 ×2; J0696 ×2; J1200; J2001; J2250; J2270; J2405; J2704; J7030; Q0162; Q9967; U0002

== ENCOUNTER 2020-04-21 16:30 | Emergency (ER) | payer OTHER ==
[~2020-04-21] VITALS: Ht 162.6 cm; Wt 86.2 kg
[~2020-04-21 16:30] MED LIST changes: +DITROPAN XL5 MG PO; +MACROBID 100 M100 MG PO; +TYLENOL WITH C1 EACH PO
[2020-04-21] MEDS ORDERED: KETOROLAC TROMETHAMINE 30 MG/ML VIAL IV STA (17:40)
[2020-04-21] MEDS ORDERED: ONDANSETRON HCL INJ 2MG/ML 2ML 2 MG/ML VIAL IV STA (17:40)
[2020-04-21] MEDS ORDERED: PANTOPRAZOLE 40 MG 10ML VIAL IV STA (17:40)
[2020-04-21] MEDS ORDERED: SODIUM CHLORIDE 0.9% 1000ML 1,000 ML IV STA (17:40)
[2020-04-21] MEDS ORDERED: PROMETHAZINE 12.5MG/ NACL 0.9% 12.5 MG/50 ML BAG IV ONE (17:45)
--- NOTE | 2020-04-21 17:57 | NUR ---
PT STATES SHE DOES NOT WANT TO WAIT ANY LONGER AND WISHES TO GO HOME NOW SPOKE WITH DR MOBLEY BEFORE LEAVING WHO ADVISED PT OF RISKS/BENEFITS OF LEAVING AND STAYING PT STATES SHE UNDERSTANDS AND STILL WANTS TO LEAVE
--- NOTE | 2020-04-21 18:10 | Emergency Department Note ---
History of Present Illnes History of Present Illness Chief Complaint: Abdominal Complaints History of Present Illness This is a 60 year old female C/O LEFT FLANK PAIN AND EPIGASTRIC ABD PAIN C/O N/V YESTERDAY TOLD SHE HAD KIDNEY STONES AND HAD STENT PLACED IN LEFT KIDNEY DR LANG IS UROLOGIST PT STATES SHE IS URINATING VERY LITTLE STATES SHE CANNOT EAT SO SHE CANNOT TAKE PAIN MEDS. Historian: Patient Arrival Mode: Car Master Yacht Required: No Radiation: Reports non-radiation Severity: moderate Onset quality: sudden Timing of current episode: constant Chronicity: new Context: Denies recent illness Relieving factors: none Exacerbating factors: none Associated symptoms: Reports denies other symptoms Treatments prior to arrival: none Past Medical/Family History Physician Review I have reviewed the patient's past medical and family history. Any updates have been documented here. Past Medical History Recent Fever: No Clinical Suspicion of Infectio: No New/Unexplained Change in Ment: No Past Medical History: COPD, Anxiety Other Medical History: CHRONIC BRONCHITIS KIDNEY STONES Past Surgical History: Hysterectomy Other Surgery: BREAST AUGMENTATION LT FOOT SX Social History Smoking Cessation: Never Smoker Counseling Performed: No Alcohol Use: None Any Illegal Drug Use: No TB Exposure/Symptoms: No Physically hurt or threatened: No Family History Family history of heart diseas: No Other Last Tetanus: utd Any Pre-Existing Lines (PICC,: No Review of Systems Review of Systems Constitutional: Reports no symptoms EENTM: Reports no symptoms Cardiovascular: Reports no symptoms Respiratory: Reports no symptoms Gastrointestinal: Reports as per HPI Genitourinary: Reports no symptoms Musculoskeletal: Reports no symptoms Integumentary: Reports no symptoms Neurological: Reports no symptoms Psychological: Reports no symptoms Endocrine: Reports no symptoms Hematological/Lymphatic: Reports no symptoms Physical Exam Related Data Allergies: Coded Allergies: ceftriaxone (Verified Allergy, Intermediate, itching, 04/20/20) levofloxacin (Verified Allergy, Unknown, 04/19/20) Triage Vital Signs Vital Signs Date Time Temp Pulse Resp B/P (MAP) Pulse Ox O2 Delivery O2 Flow Rate FiO2 04/21/20 17:32 98.2 98 18 166/101 99 Room Air Vital signs reviewed: Yes Physical Exam CONSTITUTIONAL Constitutional: Present well-developed, Present well-nourished HENT HENT: Present normocephalic, Present atraumatic, Present oropharynx clear/moist, Present nose normal HENT L/R: Present left ext ear normal, Present right ext ear normal EYES Eyes: Reports PERRL, Reports conjunctivae normal NECK Neck: Present ROM normal PULMONARY Pulmonary: Present effort normal, Present breath sounds normal CARDIOVASCULAR Cardiovascular: Present regular rhythm, Present heart sounds normal, Present capillary refill normal, Present normal rate GASTROINTESTINAL Abdominal: Present soft, Present bowel sounds normal, Present tender (MILD VIRGILIO ABD TENDERNESS, W/O R/G), Present left CVA tenderness (MILD) GENITOURINARY Genitourinary: Present exam deferred SKIN Skin: Present warm, Present dry MUSCULOSKELETAL Musculoskeletal: Present ROM normal NEUROLOGICAL Neurological: Present alert, Present oriented x 3, Present no gross motor or sensory deficits PSYCHOLOGICAL Psychological: Present mood/affect normal, Present judgement normal Assessment & Plan Medical Decision Making MDM CBC, CHEM, UA/CX. I SPOKE WITH DR LANG - HE SAID HE CALLED IN TORADOL & ZOFRAN FOR PATIENT. PT DECIDED TO LEAVE PRIOR TO LABS, IVF'S, AND REASSESSMENT. SHE UNDERSTANDS RISKS INCLUDING . SHE WAS DISCHARGED FROM MY CARE Assessment & Plan Final Impression: (1) Nausea & vomiting (2) Pain due to ureteral stent Depart Disposition: HOME, SELF-CARE Last Vital Signs Date Time Temp Pulse Resp B/P (MAP) Pulse Ox O2 Delivery O2 Flow Rate FiO2 04/21/20 17:32 98.2 98 18 166/101 99 Room Air Home Meds Reported Medications Nitrofurantoin Monohyd/M-Cryst (MACROBID 100 MG CAPSULE) 100 Mg Capsule, 100 MG PO BIDWM, CAP 04/20/20 Oxybutynin Chloride (DITROPAN XL) 5 Mg Tab.er.24, 5 MG PO BID, #30 TAB 04/20/20 Acetaminophen With Codeine (TYLENOL WITH CODEINE #3 TABLET) 1 Each Tablet, 300 MG PO Q4HR PRN for Mild Pain (1-3) or Fever>100.8, TAB 04/20/20 Melatonin (MELATONIN) 10 Mg Tab.mphase, 10 MG PO HS 07/09/19 Doxylamine Succinate (SLEEP AID) 25 Mg Tablet, PO DAILY 07/09/19 Duloxetine Hcl (CYMBALTA) 30 Mg Capsule.dr, 30 MG PO DAILY, #30 CAP 07/09/19 Lorazepam (LORAZEPAM) 0.5 Mg Tablet, 0.5 MG PO HS, TAB 07/09/19 Medications in the ED Pantoprazole Sodium 40 mg ONCE STAT IV ; Start 04/21/20 at 17:40; Stop 04/21/20 at 17:41; Status UNV Ondansetron HCl 4 mg ONCE STAT IV ; Start 04/21/20 at 17:40; Stop 04/21/20 at 17:41; Status UNV Ketorolac Tromethamine 30 mg ONCE STAT IV ; Start 04/21/20 at 17:40; Stop 04/21/20 at 17:41; Status UNV Sodium Chloride 1,000 ml @ 0 mls/hr Q0M STAT IV ; Start 04/21/20 at 17:40; Stop 04/21/20 at 17:44; Status ALLYSON BLAS MD Apr 21, 2020 18:10
== END 2020-04-21 17:58 | disposition home or self-care (01) ==
LOC: ER 16:30
DX: T83.84XA Pain due to genitourinary prosthetic devices, implants and grafts, initial encounter (principal); R11.2 Nausea with vomiting, unspecified; M54.5 Low back pain; R10.13 Epigastric pain; J44.9 Chronic obstructive pulmonary disease, unspecified; F41.9 Anxiety disorder, unspecified
CPT/HCPCS: 99282

== ENCOUNTER 2020-04-28 10:43 | Inpatient (IN) | payer OTHER ==
[~2020-04-28] VITALS: Ht 162.6 cm; Wt 86.2 kg
[2020-04-28] MEDS ORDERED: MORPHINE SULFATE INJ 4 MG/ML INJ 1ML IV STA (11:15)
[2020-04-28] MEDS ORDERED: ONDANSETRON HCL INJ 2MG/ML 2ML 2 MG/ML VIAL IV STA (11:15)
[2020-04-28] MEDS ORDERED: SODIUM CHLORIDE 0.9% 1000ML 1,000 ML IV STA (11:15)
[2020-04-28] MEDS ORDERED: MORPHINE SULFATE INJ 4 MG/ML INJ 1ML IV PRN (11:30)
[2020-04-28] MEDS ORDERED: KETOROLAC TROMETHAMINE 30 MG/ML VIAL IV STA (11:42)
[2020-04-28] MEDS ORDERED: PIPER-TAZ 3.375 GM 50 ML IV SCH (12:00)
[2020-04-28 12:07] LABS: BASOPHILS # (AUTO) 0.1 (0.0-0.1); BASOPHILS % 0.6 % (0.0-1.0); EOSINOPHILS # (AUTO) 0.1 (0.0-0.4); EOSINOPHILS % 0.3 % (0.0-6.0); HEMATOCRIT 44.1 % (34.2-44.1); HEMOGLOBIN 14.3 g/dL (12.0-16.0); LYMPHOCYTES # (AUTO) 2.1 (1.0-3.2); LYMPHOCYTES % 10.9 % (18.0-39.1); MEAN CORPUSCULAR HEMOGLOBIN 29.6 pg (28-32); MEAN CORPUSCULAR HGB CONC 32.4 g/dL (31-35); MEAN CORPUSCULAR VOLUME 91.3 fL (81-99); MONOCYTES # (AUTO) 0.9 (0.2-0.8); MONOCYTES % 4.9 % (4.4-11.3); NEUTROPHILS # (AUTO) 15.6 (2.1-6.9); NEUTROPHILS % 82.9 % (38.7-80.0); PLATELET COUNT 339 x10e3/uL (140-360); RED BLOOD COUNT 4.83 x10e6/uL (3.6-5.1); RED CELL DISTRIBUTION WIDTH 13.3 % (11.7-14.4)
[2020-04-28 12:22] LABS: INR 0.92; PROTHROMBIN TIME 12.9 seconds (11.9-14.5)
[2020-04-28 12:23] LABS: PARTIAL THROMBOPLASTIN TIME 26.7 seconds (23.8-35.5)
[2020-04-28 12:29] LABS: ALANINE AMINOTRANSFERASE 20 IU/L (0-55); ALBUMIN 3.7 g/dL (3.5-5.0); ALKALINE PHOSPHATASE 132 IU/L (40-150); ANION GAP 14.2 mmol/L (8-16); BLOOD UREA NITROGEN 10 mg/dL (7-26); BUN/CREATININE RATIO 12 (6-25); CARBON DIOXIDE 24 mmol/L (22-29); CHLORIDE 106 mmol/L (98-107); CREATINE KINASE 199 IU/L (29-168); CREATININE, SERUM 0.82 mg/dL (0.57-1.11); EST GLOMERULAR FILTRATION RATE > 60 ML/MIN (60-); GLUCOSE 112 mg/dL (74-118); MAGNESIUM 1.8 MG/DL (1.3-2.1); POTASSIUM 4.2 mmol/L (3.5-5.1); SODIUM 140 mmol/L (136-145)
[2020-04-28 12:36] LABS: CLARITY,URINE SL CLOUDY (CLEAR); COLOR,URINE YELLOW (YELLOW)
[2020-04-28 12:37] LABS: BILIRUBIN,URINE SMALL (NEGATIVE); KETONES,URINE TRACE (NEGATIVE); LEUKOCYTE ESTERASE ,URINE NEGATIVE (NEGATIVE); NITRITE,URINE NEGATIVE (NEGATIVE); PROTEIN,URINE DIPSTICK 2+ (NEGATIVE); URINE UROBILINOGEN 0.2 mg/dL (0.2 - 1)
--- NOTE | 2020-04-28 12:51 | Emergency Department Note ---
History of Present Illnes History of Present Illness Chief Complaint: Flank Pain History of Present Illness This is a 60 year old female c/o left flank pain and N/V due to kidney stones and UTI (ESBL E coli) supposed to have surgery may [address] Bui. She was seen here recently 04/19/20 and then has been to several free-standing ER's due to N/V and inability to hold down fluids and meds. Historian: Patient Arrival Mode: Car Court Reporter Required: No Onset (how long ago): week(s) (1) Location: left flank Quality: pain Radiation: Reports non-radiation Severity: moderate Onset quality: sudden Timing of current episode: intermittent Progression: waxing and waning Chronicity: new Context: Denies recent illness Relieving factors: none Exacerbating factors: none Associated symptoms: Reports nausea/vomiting Past Medical/Family History Physician Review I have reviewed the patient's past medical and family history. Any updates have been documented here. Past Medical History Recent Fever: No Clinical Suspicion of Infectio: No New/Unexplained Change in Ment: No Past Medical History: COPD, Anxiety Other Medical History: CHRONIC BRONCHITIS KIDNEY STONES Past Surgical History: Hysterectomy Other Surgery: BREAST AUGMENTATION LT FOOT SX Social History Smoking Cessation: Former smoker Counseling Performed: Yes Alcohol Use: None TB Exposure/Symptoms: No Physically hurt or threatened: No Family History Family history of heart diseas: No Other Last Tetanus: utd Review of Systems Review of Systems Constitutional: Reports no symptoms EENTM: Reports no symptoms Cardiovascular: Reports no symptoms Respiratory: Reports no symptoms Gastrointestinal: Reports as per HPI Genitourinary: Reports no symptoms Musculoskeletal: Reports no symptoms Integumentary: Reports no symptoms Neurological: Reports no symptoms Psychological: Reports no symptoms Endocrine: Reports no symptoms Hematological/Lymphatic: Reports no symptoms Physical Exam Related Data Allergies: Coded Allergies: ceftriaxone (Verified Allergy, Intermediate, itching, 04/20/20) levofloxacin (Verified Allergy, Unknown, 04/19/20) Triage Vital Signs Vital Signs Date Time Temp Pulse Resp B/P (MAP) Pulse Ox O2 Delivery O2 Flow Rate FiO2 04/28/20 11:06 98.1 97 18 151/92 100 Room Air Vital signs reviewed: Yes Physical Exam CONSTITUTIONAL Constitutional: Present well-developed, Present well-nourished HENT HENT: Present normocephalic, Present atraumatic, Present mucosae dry, Present nose normal HENT L/R: Present left ext ear normal, Present right ext ear normal EYES Eyes: Reports PERRL, Reports conjunctivae normal NECK Neck: Present ROM normal PULMONARY Pulmonary: Present effort normal, Present breath sounds normal CARDIOVASCULAR Cardiovascular: Present regular rhythm, Present heart sounds normal, Present capillary refill normal, Present normal rate GASTROINTESTINAL Abdominal: Present left CVA tenderness GENITOURINARY Genitourinary: Present exam deferred SKIN Skin: Present warm, Present dry MUSCULOSKELETAL Musculoskeletal: Present ROM normal NEUROLOGICAL Neurological: Present alert, Present oriented x 3, Present no gross motor or sensory deficits PSYCHOLOGICAL Psychological: Present mood/affect normal, Present judgement normal Results Laboratory Result Diagram: 04/28/20 1137 04/28/20 1137 Laboratory Laboratory Tests Test 04/28/20 11:37 White Blood Count 18.86 x10e3/uL (4.8-10.8) Red Blood Count 4.83 x10e6/uL (3.6-5.1) Hemoglobin 14.3 g/dL (12.0-16.0) Hematocrit 44.1 % (34.2-44.1) Mean Corpuscular Volume 91.3 fL (81-99) Mean Corpuscular Hemoglobin 29.6 pg (28-32) Mean Corpuscular Hemoglobin Concent 32.4 g/dL (31-35) Red Cell Distribution Width 13.3 % (11.7-14.4) Platelet Count 339 x10e3/uL (140-360) Neutrophils (%) (Auto) 82.9 % (38.7-80.0) Lymphocytes (%) (Auto) 10.9 % (18.0-39.1) Monocytes (%) (Auto) 4.9 % (4.4-11.3) Eosinophils (%) (Auto) 0.3 % (0.0-6.0) Basophils (%) (Auto) 0.6 % (0.0-1.0) Neutrophils # (Auto) 15.6 (2.1-6.9) Lymphocytes # (Auto) 2.1 (1.0-3.2) Monocytes # (Auto) 0.9 (0.2-0.8) Eosinophils # (Auto) 0.1 (0.0-0.4) Basophils # (Auto) 0.1 (0.0-0.1) Absolute Immature Granulocyte (auto 0.07 x10e3/uL (0-0.1) Prothrombin Time 12.9 seconds (11.9-14.5) Prothromb Time International Ratio 0.92 Activated Partial Thromboplast Time 26.7 seconds (23.8-35.5) Sodium Level 140 mmol/L (136-145) Potassium Level 4.2 mmol/L (3.5-5.1) Chloride Level 106 mmol/L (98-107) Carbon Dioxide Level 24 mmol/L (22-29) Anion Gap 14.2 mmol/L (8-16) Blood Urea Nitrogen 10 mg/dL (7-26) Creatinine 0.82 mg/dL (0.57-1.11) Estimat Glomerular Filtration Rate > 60 ML/MIN (60-) BUN/Creatinine Ratio 12 (6-25) Glucose Level 112 mg/dL (74-118) Calcium Level 9.0 mg/dL (8.4-10.2) Magnesium Level 1.8 MG/DL (1.3-2.1) Total Bilirubin 0.2 mg/dL (0.2-1.2) Aspartate Amino Transf (AST/SGOT) 22 IU/L (5-34) Alanine Aminotransferase (ALT/SGPT) 20 IU/L (0-55) Alkaline Phosphatase 132 IU/L (40-150) Creatine Kinase 199 IU/L (29-168) Total Protein 7.4 g/dL (6.5-8.1) Albumin 3.7 g/dL (3.5-5.0) Globulin 3.7 g/dL (2.3-3.5) Albumin/Globulin Ratio 1.0 (0.8-2.0) Lab results reviewed: Yes Assessment & Plan Medical Decision Making MDM cbc, chem, cardiacs, ua/cx, blood cx, covid swab (admission) - r/o uti, renal insuff, electrolyte abnl Reassessment Reassessment Will admit pt for pain control, antiemetics since pt with recent ESBL E coli unable to hold down meds. I spoke with Dr Bui and Dr Bharat Hahn Assessment & Plan Final Impression: (1) Nausea & vomiting (2) Dehydration (3) Kidney stone on left side (4) UTI (urinary tract infection) Depart Disposition: ADMITTED Last Vital Signs Date Time Temp Pulse Resp B/P (MAP) Pulse Ox O2 Delivery O2 Flow Rate FiO2 04/28/20 11:06 98.1 97 18 151/92 100 Room Air Home Meds Reported Medications Nitrofurantoin Monohyd/M-Cryst (MACROBID 100 MG CAPSULE) 100 Mg Capsule, 100 MG PO BIDWM, CAP 04/20/20 Oxybutynin Chloride (DITROPAN XL) 5 Mg Tab.er.24, 5 MG PO BID, #30 TAB 04/20/20 Acetaminophen With Codeine (TYLENOL WITH CODEINE #3 TABLET) 1 Each Tablet, 300 MG PO Q4HR PRN for Mild Pain (1-3) or Fever>100.8, TAB 04/20/20 Melatonin (MELATONIN) 10 Mg Tab.mphase, 10 MG PO HS 07/09/19 Doxylamine Succinate (SLEEP AID) 25 Mg Tablet, PO DAILY 07/09/19 Duloxetine Hcl (CYMBALTA) 30 Mg Capsule.dr, 30 MG PO DAILY, #30 CAP 07/09/19 Lorazepam (LORAZEPAM) 0.5 Mg Tablet, 0.5 MG PO HS, TAB 07/09/19 Medications in the ED Morphine Sulfate 4 mg ONCE STAT IV ; Start 04/28/20 at 11:15; Stop 04/28/20 at 11:30; Status DC Ondansetron HCl 4 mg ONCE STAT IV Last administered on 04/28/20at 11:57; Admin Dose 4 MG; Start 04/28/20 at 11:15; Stop 04/28/20 at 11:29; Status DC Sodium Chloride 1,000 ml @ 0 mls/hr Q0M STAT IV Last administered on 04/28/20at 11:57; Admin Dose 999 MLS/HR; Start 04/28/20 at 11:15; Stop 04/28/20 at 11:19; Status DC Ondansetron HCl 4 mg Q4H PRN IV NAUSEA AND VOMITING; Start 04/28/20 at 11:30; Stop 05/28/20 at 11:29 Morphine Sulfate 4 mg Q4H PRN IV SEVERE PAIN (7-10); Start 04/28/20 at 11:30; Stop 05/05/20 at 11:29 ALLYSON MOBLEY MD Apr 28, 2020 12:51
[2020-04-28 12:54] LABS: BACTERIA,URINE RARE /HPF; EPITHELIAL CELLS,URINE FEW /LPF; RBC,URINE 21-50 /HPF (0-5); WBC,URINE (MAN) 21-50 /HPF (0-5)
[2020-04-28 13:35] VITALS: BP 166/91
[2020-04-28] MEDS: ONDANSETRON HCL INJ 2MG/ML 2ML 2 MG/ML VIAL IV PRN ×2 (13:39→16:54)
[2020-04-28] MEDS: SODIUM CHLORIDE 0.9% 1000ML 1,000 ML IV SCH ×2 (14:27→22:51)
[2020-04-28] MEDS ORDERED: VANCOMYCIN 1GM/NS 250 ML 250 ML IV SCH (15:00)
[2020-04-28] MEDS ORDERED: ONDANSETRON HCL INJ 2MG/ML 2ML 2 MG/ML VIAL IV PRN (17:45)
[2020-04-28] MEDS ORDERED: KETOROLAC TROMETHAMINE 30 MG/ML VIAL IV PRN (17:45)
--- NOTE | 2020-04-28 19:23 | NUR ---
Patient received lying in bed. AAO x 4. Patient had no complaints of pain. Respirations even and non-labored. IVF infusing at 125 cc/hr. Fall precautions implemented. Patient instructed to call for assistance when needed. Call light within reach.
[2020-04-28] MEDS ORDERED: MEROPENEM 1GM 100 ML IV SCH (19:30)
[2020-04-28 20:00] VITALS: BP 158/97
[2020-04-28 21:00] VITALS: BP 158/97
[2020-04-28] MEDS ORDERED: TEMAZEPAM 15 MG CAP PO PRN (21:00)
[2020-04-28] MEDS ORDERED: NON-FORMULARY MEDICATION (Melatonin 10 MG) PO SCH (21:00)
--- NOTE | 2020-04-28 21:00 | History and Physical ---
PRIMARY CARE PHYSICIAN: Jc Contreras MD. ADMINISTRATIVE HEARING OFFICER: Dr. Suraj Bui. CHIEF COMPLAINT: Flank pain. Obstructed kidney stones. Dehydration. Recurrent urinary tract infection. Multiple ER visits. HISTORY OF PRESENT ILLNESS: The patient is a 60-year-old female, who has multiple emergency room visits because of the flank pain on the left side associated with kidney stones obstructed. The patient is with left ureteral stent. The patient was recently here, subsequently went home. The patient now came back in after multiple emergency room visits. The patient is having increase in abdominal pain. She had complicated urinary tract infection associated with kidney stone and obstruction with ESBL E coli. The patient was supposed to have surgery by May [address] Suraj Bui, but her pain is quite significantly severe that brought the patient to the emergency room. She had been to [facility] multiple times due to the pain, but she started having nausea and vomiting, and was unable to hold any further oral intake, which brought the patient to the hospital. Here, the patient WBC is 18.8 thousand. Urinalysis shows significant leukocytosis with trace ketone and 2+ protein. Her coronavirus PCR is pending. The patient is stable, however, with medication for pain and IV antibiotics along with IV fluids. PAST MEDICAL HISTORY: Obstructive kidney stone with left hydronephrosis. The patient has previous left ureteral stent placement. Kidney stone with obstruction. The patient had kidney stone in the past with lithotripsy treatment. Stable COPD. Anxiety disorder. Chronic bronchitis. PAST SURGICAL HISTORY: Kidney stone management with lithotripsy. Left ureteral stent. Hysterectomy. Breast implant. SOCIAL HISTORY: The patient is a smoker. She denied any significant alcohol use. No regular drug. ALLERGIES: ROCEPHIN AND LEVAQUIN. HOME MEDICATIONS: The patient is on: 1. Tylenol with codeine. 2. Cymbalta. 3. Lorazepam. 4. Melatonin. 5. Nitrofurantoin. 6. Oxybutynin. PHYSICAL EXAMINATION: VITAL SIGNS: Temperature is 98, blood pressure 151/92, pulse rate is 84, respirations 20. GENERAL: The patient is not in acute distress. She is awake. She is anxious, however. HEENT: Normocephalic and atraumatic. Anicteric. NECK: Supple grossly. PULMONARY: Diminished breath sounds. CARDIOVASCULAR: S1, S2. Tachycardia. Regular rate and rhythm. ABDOMEN: Soft. Right flank tenderness. EXTREMITIES: No cyanosis or edema. NEUROLOGIC: No focal deficit. LABORATORY DATA: WBC is 18.8, hemoglobin 14.3, hematocrit 44, platelet is 339. Chemistry sodium is 140, potassium 4.2, chloride 106, bicarb 24, BUN 10, creatinine 0.8, glucose 112. Urinalysis; wbc's 50, 2+ leukocyte esterase, cloudy urine. Coronavirus PCR is still pending. IMPRESSION: 1. Left obstructed kidney stone associated with left ureteral stent with increase in WBC and pain with multiple ER visit. The patient has history of extended spectrum beta-lactamases Escherichia coli infection. 2. Possible early systemic inflammatory response syndrome. 3. Multiple chronic baseline problems. PLAN: Meropenem. Continue with home medication. We will continue with IV fluids. Pain control. Anxiolytic. Treat the patient's insomnia. Reglan for nausea and vomiting. We will monitor the patient closely and adjust her medication. Dr. Suraj Bui is on the case. MD JOSE GUADALUPE Perez/EMYL /[id number]
[2020-04-28] MEDS: MELATONIN 5 MG TABLET PO SCH (21:26)
[2020-04-28] MEDS: METOCLOPRAMIDE HCL 10 MG TAB PO SCH (21:26)
[2020-04-29] VITALS: BP 115/72
[2020-04-29 04:00] VITALS: BP 122/72
--- NOTE | 2020-04-29 04:00 | NUR ---
Patient complained of discomfort with Rt EJ. IV removed with tip intact. New IV inserted in Right hand 20G. Patient tolerated well.
[2020-04-29 05:48] LABS: BASOPHILS # (AUTO) 0.1 (0.0-0.1); BASOPHILS % 0.8 % (0.0-1.0); EOSINOPHILS # (AUTO) 0.1 (0.0-0.4); HEMATOCRIT 40.5 % (34.2-44.1); LYMPHOCYTES # (AUTO) 2.7 (1.0-3.2); LYMPHOCYTES % 24.9 % (18.0-39.1); MEAN CORPUSCULAR HEMOGLOBIN 28.9 pg (28-32); MEAN CORPUSCULAR HGB CONC 32.1 g/dL (31-35); NEUTROPHILS # (AUTO) 6.9 (2.1-6.9); NEUTROPHILS % 63.9 % (38.7-80.0); PLATELET COUNT 332 x10e3/uL (140-360); RED CELL DISTRIBUTION WIDTH 13.4 % (11.7-14.4)
[2020-04-29 06:32] LABS: ALANINE AMINOTRANSFERASE 17 IU/L (0-55); ALBUMIN 3.2 g/dL (3.5-5.0); ALBUMIN/GLOBULIN RATIO 0.9 (0.8-2.0); ALKALINE PHOSPHATASE 123 IU/L (40-150); ANION GAP 13.7 mmol/L (8-16); BLOOD UREA NITROGEN 8 mg/dL (7-26); BUN/CREATININE RATIO 10 (6-25); CALCIUM 8.7 mg/dL (8.4-10.2); CARBON DIOXIDE 23 mmol/L (22-29); CHLORIDE 108 mmol/L (98-107); CREATININE, SERUM 0.81 mg/dL (0.57-1.11); EST GLOMERULAR FILTRATION RATE > 60 ML/MIN (60-); GLUCOSE 96 mg/dL (74-118); POTASSIUM 3.7 mmol/L (3.5-5.1); SODIUM 141 mmol/L (136-145)
--- NOTE | 2020-04-29 07:00 | NUR ---
Walking rounds done. Patient resting comfortably. Shift report given to oncoming nurse.
[2020-04-29] MEDS: SODIUM CHLORIDE 0.9% 1000ML 1,000 ML IV SCH ×3 (07:21→22:31)
[2020-04-29 07:46] VITALS: BP 124/75
--- NOTE | 2020-04-29 09:09 | NUR ---
The patient is transported for radiology at this time.
--- NOTE | 2020-04-29 09:33 | Diagnostic Imaging Report ---
EXAM: ABDOMEN-1VIEW (KUB) DATE: 04/29/2020 9:06 AM INDICATION: Urinary stone COMPARISON: CT abdomen/pelvis without contrast from 04/19/2020 FINDINGS: Left-sided double-J ureteral stent identified in place. There is a 6 mm calcification identified adjacent to the ureteral stent along the course of the proximal ureter likely reflecting the previously identified proximal ureteral stone. No other radiographically evident urinary stones are appreciated. Bowel gas pattern is nonobstructive. No intracranial free air is appreciated on this supine view examination. No acute osseous abnormality is identified. IMPRESSION: 6 mm stone identified along the expected course of the proximal left ureter. Left-sided ureteral stent identified in place. Signed by: Dr. Mark Viveros MD on 04/29/2020 9:30 AM
[2020-04-29] MEDS: METOCLOPRAMIDE HCL 10 MG TAB PO SCH ×4 (10:09→22:30)
[2020-04-29] MEDS: DULOXETINE HCL 30 MG DELAYED RELEASE PO SCH (10:09)
[2020-04-29] MEDS: OXYBUTYNIN CHLORIDE XL 5 MG TAB PO SCH ×2 (10:09→18:51)
[2020-04-29] MEDS: VANCOMYCIN 1GM/NS 250 ML 250 ML IV SCH ×2 (10:09→22:30)
[2020-04-29] MEDS: MEROPENEM 1GM 100 ML IV SCH (14:32)
--- NOTE | 2020-04-29 19:22 | NUR ---
Patient received sitting up in bed. AAO x 4. No acute distress noted. IVF infusing at 125 cc/hr. Fall precautions implemented. Call light within reach.
[2020-04-29 20:00] VITALS: BP 127/86
[2020-04-29 21:00] VITALS: BP 127/86
[2020-04-29] MEDS: MELATONIN 5 MG TABLET PO SCH (22:30)
--- NOTE | 2020-04-29 23:40 | NUR ---
Patient informed of upcoming surgical procedure and NPO status. Patient verbalized understanding. Disclosure and consent form voluntarily signed.
[2020-04-30] VITALS (8 sets, daily range): BP systolic 131–150; BP diastolic 64–83
[2020-04-30] MEDS: MEROPENEM 1GM 100 ML IV SCH ×2 (00:30→12:00)
[2020-04-30] MEDS: SODIUM CHLORIDE 0.9% 1000ML 1,000 ML IV SCH ×3 (07:09→21:00)
[2020-04-30] MEDS: METOCLOPRAMIDE HCL 10 MG TAB PO SCH ×4 (07:30→20:49)
[2020-04-30] MEDS: OXYBUTYNIN CHLORIDE XL 5 MG TAB PO SCH (09:00)
[2020-04-30] MEDS: DULOXETINE HCL 30 MG DELAYED RELEASE PO SCH (09:00)
[2020-04-30] MEDS: VANCOMYCIN 1GM/NS 250 ML 250 ML IV SCH ×2 (13:06→22:30)
--- NOTE | 2020-04-30 13:20 | NUR ---
Patient off the unit for Procedure, NPO, Stable
[2020-04-30] MEDS ORDERED: IOPAMIDOL 300MG/ML 50ML INFUS..BTL IV ONE (15:08)
[2020-04-30] MEDS ORDERED: B&O 60MG R/S 60 MG SUPP PR ONE (15:49)
[2020-04-30] MEDS ORDERED: PHENAZOPYRIDINE HCL 100 MG TAB PO PRN (16:15)
[2020-04-30] MEDS ORDERED: SEVOFLURANE INHAL SOLN 250 ML PEN BTL ONE (19:42)
[2020-04-30] MEDS ORDERED: DEXAMETHASONE SOD PHOS INJ 4 MG/ML VIAL ONE (19:42)
[2020-04-30] MEDS ORDERED: ETOMIDATE 2 MG/ML 10 ML INJ IV ONE (19:42)
[2020-04-30] MEDS ORDERED: ONDANSETRON HCL INJ 2MG/ML 2ML 2 MG/ML VIAL ONE (19:42)
[2020-04-30] MEDS ORDERED: PROPOFOL IV EMULSION 10 MG/ML 20 ML VIAL ONE (19:42)
[2020-04-30] MEDS ORDERED: LIDOCAINE HCL 2% JELLY 5 ML TUBE ONE (19:42)
[2020-04-30] MEDS: ALPRAZOLAM 0.25 MG TAB PO PRN (20:48)
[2020-04-30] MEDS: MELATONIN 5 MG TABLET PO SCH (20:49)
[2020-05-01] MEDS: MEROPENEM 1GM 100 ML IV SCH (00:30)
[2020-05-01 01:03] VITALS: BP 114/74
[2020-05-01 05:07] VITALS: BP 133/74
[2020-05-01] MEDS: SODIUM CHLORIDE 0.9% 1000ML 1,000 ML IV SCH (05:09)
[2020-05-01 05:14] LABS: BASOPHILS % 0.4 % (0.0-1.0); HEMATOCRIT 37.2 % (34.2-44.1); HEMOGLOBIN 12.1 g/dL (12.0-16.0); LYMPHOCYTES # (AUTO) 1.3 (1.0-3.2); MEAN CORPUSCULAR HGB CONC 32.5 g/dL (31-35); MEAN CORPUSCULAR VOLUME 89.2 fL (81-99); MONOCYTES # (AUTO) 0.6 (0.2-0.8); MONOCYTES % 5.1 % (4.4-11.3); NEUTROPHILS # (AUTO) 8.8 (2.1-6.9); PLATELET COUNT 325 x10e3/uL (140-360); RED BLOOD COUNT 4.17 x10e6/uL (3.6-5.1); RED CELL DISTRIBUTION WIDTH 12.9 % (11.7-14.4)
[2020-05-01 05:29] LABS: ANION GAP 10.3 mmol/L (8-16); BLOOD UREA NITROGEN 7 mg/dL (7-26); BUN/CREATININE RATIO 11 (6-25); CALCIUM 8.5 mg/dL (8.4-10.2); CARBON DIOXIDE 23 mmol/L (22-29); CHLORIDE 109 mmol/L (98-107); CREATININE, SERUM 0.66 mg/dL (0.57-1.11); EST GLOMERULAR FILTRATION RATE > 60 ML/MIN (60-); GLUCOSE 108 mg/dL (74-118); POTASSIUM 4.3 mmol/L (3.5-5.1); SODIUM 138 mmol/L (136-145)
--- NOTE | 2020-05-01 07:00 | NUR ---
Patient resting comfortably. Walking rounds done. Shift report given to oncoming nurse regarding patient's status.
[2020-05-01 08:17] VITALS: BP 144/87
[2020-05-01] MEDS: METOCLOPRAMIDE HCL 10 MG TAB PO SCH ×2 (08:18→11:30)
[2020-05-01] MEDS: VANCOMYCIN 1GM/NS 250 ML 250 ML IV SCH (08:18)
[2020-05-01 08:59] VITALS: BP 144/87
[2020-05-01] MEDS: DULOXETINE HCL 30 MG DELAYED RELEASE PO SCH (09:00)
[2020-05-01] MEDS: ALPRAZOLAM 0.25 MG TAB PO PRN (14:41)
--- NOTE | 2020-05-01 14:45 | Discharge Summary ---
TELECOM COORDINATOR: Dr. Suraj Bui. FINAL DIAGNOSES: 1. Complicated urinary tract infection associated with kidney stone and stent of the left ureter. 2. Status post ureteroscopy and cystoscopy, removal of left ureteral stent and also laser lithotripsy. SUMMARY: The patient is a 60-year-old female, who came in with severe left flank pain. The patient has previous stone management. She has hydronephrosis and left ureteral stent. The patient underwent retrograde pyelogram and subsequently, the patient had the procedure as mentioned above. Stent was removed, stone removed. White cell count was 18.9 thousand when she presented to the hospital and now is 10.7 thousand. Mild left shift. The patient is stable. She will go home today. Resume home medication. Tylenol No. 3 and Zofran as needed. The patient will continue with her medication at home. Follow up with Dr. Suraj Bui per plan. Resume same home medication. No further workup. Of note, the patient's microbiology; urine culture final was negative. Same with blood cultures x2 sets. The patient is otherwise stable, discharged home today, afebrile. Blood pressure better controlled. MD JOSE GUADALUPE Perez/JEMAL /[id number]
[2020-05-01] MEDS ORDERED: ZOFRAN4 MG PO (15:01)
--- NOTE | 2020-05-01 15:29 | NUR ---
patient discharged home, Alert with o distress, prescription given, Patient aware about f/up appointments, IV removed with tip intact, no ss of infiltration noted.
== END 2020-05-01 15:12 | disposition home or self-care (01) | DRG 670 ==
LOC: ER 11:14 → ERHOLD 11:32 → MED/SURG2 13:29 → UNDODISIN 04-29 13:32
PROVIDERS: ADMIT Internal Medicine; ATTEND Internal Medicine
PROC: 0TC78ZZ Extirpation of Matter from Left Ureter, Via Natural or Artificial Opening Endoscopic (ICD-10-PCS; principal; 2020-04-28)
PROC: BT1F1ZZ Fluoroscopy of Left Kidney, Ureter and Bladder using Low Osmolar Contrast (ICD-10-PCS; 2020-04-28)
PROC: 0TP98DZ Removal of Intraluminal Device from Ureter, Via Natural or Artificial Opening Endoscopic (ICD-10-PCS; 2020-04-28)
DX: T83.593A Infection and inflammatory reaction due to other urinary stents, initial encounter (principal); E86.0 Dehydration; T83.89XA Other specified complication of genitourinary prosthetic devices, implants and grafts, initial encounter; J44.9 Chronic obstructive pulmonary disease, unspecified; F41.9 Anxiety disorder, unspecified; Z11.59 Encounter for screening for other viral diseases; G47.33 Obstructive sleep apnea (adult) (pediatric); F17.200 Nicotine dependence, unspecified, uncomplicated
CPT/HCPCS: 36415; 74018; 74420; 80048; 80053; 80202; 81001; 82550; 82553; 83735; 84484; 85025; 85610; 85730; 87040; 87086; 88300; 99283; C1758; C1769; J1100; J1885; J2001; J2270; J2405; J2543; J3370; J7030; U0002

== ENCOUNTER → 2021-04-11 | Outpatient (CLI) | payer OTHER ==
[~2021-04-11] MED LIST changes: +ZOFRAN4 MG PO
== END ==
LOC: CT 16:05
PROVIDERS: ATTEND Internal Medicine Pulmonary Disease
DX: R91.8 Other nonspecific abnormal finding of lung field (principal)
CPT/HCPCS: 71250

== ENCOUNTER 2024-02-28 08:31 | Emergency (ER) | payer MEDICARE, BC ==
[~2024-02-28] VITALS: Ht 315 cm; Wt 77.1 kg
[~2024-02-28 08:31] MED LIST changes: +ATORVASTATIN CA10 MG PO; +LEXAPRO20 MG PO; +ONDANSETRON ODT4 MG PO; +PROVENTIL HFA6.7 GM INH; +ROPINIROLE HCL5 MG PO
[2024-02-28] MEDS: PROMETHAZINE 25MG/ NS 50ML (IV) IV ONE (09:51)
[2024-02-28] MEDS: SODIUM CHLORIDE 0.9% 1000ML 1,000 ML IV STA (09:51)
[2024-02-28 09:58] LABS: BASOPHILS % 0.2 % (0.0-1.0); HEMATOCRIT 41.5 % (34.2-44.1); HEMOGLOBIN 14.3 g/dL (12.0-16.0); MEAN CORPUSCULAR HEMOGLOBIN 30.5 pg (28-32); MEAN CORPUSCULAR HGB CONC 34.5 g/dL (31-35); MEAN CORPUSCULAR VOLUME 88.5 fL (81-99); MONOCYTES # (AUTO) 0.7 (0.2-0.8); MONOCYTES % 4.2 % (4.4-11.3); NEUTROPHILS # (AUTO) 14.9 (2.1-6.9); PLATELET COUNT 402 x10e3/uL (140-360); RED BLOOD COUNT 4.69 x10e6/uL (3.6-5.1); RED CELL DISTRIBUTION WIDTH 13.4 % (11.7-14.4)
[2024-02-28 10:14] LABS: ANION GAP 18.2 mmol/L (8-16); CALCIUM 10.1 mg/dL (8.4-10.2); CREATININE, SERUM 0.94 mg/dL (0.57-1.11)
[2024-02-28 10:19] LABS: POTASSIUM 3.2 mmol/L (3.5-5.1)
[2024-02-28 13:06] VITALS: BP 142/76; PULSE 76; RESP 17; TEMP 98.1; O2SAT 98
== END 2024-02-28 13:07 | disposition home or self-care (01) ==
LOC: ER 09:24
DX: R53.1 Weakness (principal); K29.70 Gastritis, unspecified, without bleeding; R11.2 Nausea with vomiting, unspecified; R10.9 Unspecified abdominal pain; I10 Essential (primary) hypertension; J44.9 Chronic obstructive pulmonary disease, unspecified; K21.9 Gastro-esophageal reflux disease without esophagitis; Z87.442 Personal history of urinary calculi
CPT/HCPCS: 36415; 80048; 85025; 99283; J2550; J7030